=== PATIENT | female | born 2000 | race Caucasian/White ===

== ENCOUNTER 2019-06-19 18:01 | Emergency (ER) | payer OTHER ==
[2019-06-19 18:13] VITALS: BP 134/77; PULSE 137; TEMP 102.3; BMI 34.9
[2019-06-19] MEDS ORDERED: IBUPROFEN 600 MG TABLET (FP) PO ONE ×2 (18:15→19:52)
[2019-06-19] MEDS ORDERED: DEXAMETHASONE LIQUID 0.5 MG/5 ML PO ONE (18:15)
--- NOTE | 2019-06-19 18:16 | PDOC ---
Rapid Medical Evaluation Time Seen by Provider: 06/19/19 18:10 Medical Evaluation: Allergies Allergy/AdvReac Type Severity Reaction Status Date / Time No Known Allergies Allergy Verified 06/19/14 12:45 06/19/19 18:10 Pt presents for evaluation of fever and sore throat since Wednesday. Took Tylenol just prior to arrival Exam: Throat with 3+ edema. Uvula midline. (+) exudate and edema. (+) halitosis Orders: Rapid strep. Motrin Pt to proceed to the ED for further evaluation Discharge Disposition - Diagnosis Pharyngitis - Referrals - Patient Instructions - Post Discharge Activity
[2019-06-19] MEDS ORDERED: DEXAMETHASONE SOD PHOSPHATE 10 MG/1 ML VIAL ONE (19:52)
--- NOTE | 2019-06-19 20:03 | PDOC ---
History of Present Illness - General Chief Complaint: Cold Symptoms Stated Complaint: FEVER & DIZZINES Time Seen by Provider: 06/19/19 18:10 - History of Present Illness Initial Comments: 06/19/19 20:01 18-year-old female without comorbidities presents for evaluation of fever and sore throat x3 days Past History - Past Medical History Allergies/Adverse Reactions: Allergies Allergy/AdvReac Type Severity Reaction Status Date / Time No Known Allergies Allergy Verified 06/19/19 18:13 Home Medications: Ambulatory Orders metFORMIN HCL [Glucophage -] 500 mg PO BID 06/19/14 Asthma: No COPD: No Diabetes: No (HIGH INSULIN-BLOOD SUGAR STABLE) Seizures: No - Surgical History Abdominal Surgery: No Cardiac Surgery: No Lung Surgery: No Orthopedic Surgery: No - Immunization History Immunization Up to Date: Yes - Psycho Social/Smoking Cessation Hx Smoking History: Never smoked Have you smoked in the past 12 months: No Information on smoking cessation initiated: No Hx Alcohol Use: No Drug/Substance Use Hx: No Substance Use Type: None Hx Substance Use Treatment: No Review of Systems - Review of Systems Constitutional: Yes: Fever HEENTM: Yes: Throat Pain, Throat Swelling, Difficulty Swallowing *Physical Exam - Vital Signs Last Vital Signs Temp Pulse Resp BP Pulse Ox 102.3 F H 137 H 20 134/77 99 06/19/19 18:10 06/19/19 18:10 06/19/19 18:10 06/19/19 18:10 06/19/19 18:10 - Physical Exam 06/19/19 20:01 GENERAL: The patient is awake, alert, and fully oriented, in no acute distress. HEAD: Normal with no signs of trauma. EYES: sclera anicteric, conjunctiva clear. ENT: Ears normal tympanic membranes normal oropharynx erythemic with vesicular lesions uvula midline without deviation NECK: Normal range of motion LUNGS: Breath sounds equal, clear to auscultation bilaterally. No wheezes, and no crackles. HEART: S1 and S2 without murmur, rub or gallop. ABDOMEN: Soft, nontender, normoactive bowel sounds. No guarding, no rebound. No masses. EXTREMITIES: Normal range of motion, no edema. No clubbing or cyanosis. No cords, erythema, or tenderness. NEUROLOGICAL: Cranial nerves II through XII grossly intact. Normal speech, normal gait. PSYCH: Normal mood, normal affect. SKIN: Warm, Dry, normal turgor, no rashes or lesions noted. ED Treatment Course - Medications Given in the ED: ED Medications Discontinued Medications Generic Name Dose Route Start Last Admin Trade Name Harry PRN Reason Stop Dose Admin Dexamethasone 10 mg 06/19/19 18:15 06/19/19 19:57 Decadron Liquid - PO 06/19/19 18:16 10 mg ONCE ONE Administration Ibuprofen 600 mg 06/19/19 18:15 06/19/19 19:57 Motrin - PO 06/19/19 18:16 600 mg ONCE ONE Administration Medical Decision Making - Medical Decision Making 06/19/19 20:02 Negative strep viral appearance to oropharynx will treat with supportive care warm salt water gargles follow-up on throat culture Discharge - Discharge Information Problems reviewed: Yes Clinical Impression/Diagnosis: Pharyngitis, Viral pharyngitis Condition: Stable Disposition: HOME - Admission No - Follow up/Referral Referrals: Emma Palma MD [Primary Care Provider] - - Patient Discharge Instructions Patient Printed Discharge Instructions: Viral Pharyngitis, DI for Viral Pharyngitis Additional Instructions: Warm salt water gargles 5-6 times a day for throat pain. Tylenol and Motrin for fever as directed. Return to the emergency room for worsening symptoms and without fail follow-up with your primary care physician in 1 to 2 days for further evaluation and treatment options. Your rapid strep in the emergency room was negative should you require antibiotics we will call you. - Post Discharge Activity
== END 2019-06-19 20:21 | disposition home or self-care (01) ==
LOC: JER 18:01 → JERFT 18:01
DX: J02.9 Acute pharyngitis, unspecified (principal); B97.89 Other viral agents as the cause of diseases classified elsewhere
CPT/HCPCS: 87070; 87880; 99282-25

== ENCOUNTER 2024-03-21 14:37 | Emergency (ER) | payer OTHER ==
[2024-03-21 14:43] VITALS: BP 139/85; PULSE 98; RESP 20; TEMP 98.9; BMI 38.2
[2024-03-21 19:38] LABS: HIV INTERPRETATION NEGATIVE (NEGATIVE)
== END 2024-03-21 16:20 | disposition home or self-care (01) ==
LOC: JERFT 14:37
DX: S02.2XXA Fracture of nasal bones, initial encounter for closed fracture (principal); Y04.0XXA Assault by unarmed brawl or fight, initial encounter
CPT/HCPCS: 36415; 70150-TC-FY; 86803; 87389; 99284-25

== ENCOUNTER 2024-06-29 22:07 | Emergency (ER) | payer OTHER ==
[2024-06-29 22:20] VITALS: BP 136/86; PULSE 82; RESP 19; TEMP 99.2; BMI 35.1
[2024-06-29] MEDS ORDERED: ACETAMINOPHEN 325 MG TABLET (FP) ONE (23:34)
[2024-06-29] MEDS ORDERED: DIPHTH,PERTUSS(ACELL),TET 0.5 ML DISP.SYRIN IM ONE (23:35)
[2024-06-29] MEDS: ACETAMINOPHEN 500 MG TABLET (FP) PO ONE (23:49)
[2024-06-29] MEDS: DIPHTH,PERTUSS(ACELL),TET 0.5 ML DISP.SYRIN IM ONE (23:50)
[2024-06-30 01:48] LABS: HIV INTERPRETATION NEGATIVE (NEGATIVE)
== END 2024-06-30 01:08 | disposition home or self-care (01) ==
LOC: JER 22:07
PROC: 3E0234Z Introduction of Serum, Toxoid and Vaccine into Muscle, Percutaneous Approach (ICD-10-PCS; principal; 2024-06-29)
DX: S01.81XA Laceration without foreign body of other part of head, initial encounter (principal); W01.198A Fall on same level from slipping, tripping and stumbling with subsequent striking against other object, initial encounter; Z23 Encounter for immunization
CPT/HCPCS: 36415; 86803; 87389; 90471; 90715; 99284-25